=== PATIENT | female | born 1940 | race Caucasian/White ===

== ENCOUNTER 2017-05-14 20:10 | Emergency (ER) | payer OTHER ==
--- NOTE | 2017-05-14 20:16 | PDOC ---
History of Present Illness - General History Source: Patient Exam Limitations: No Limitations - History of Present Illness Initial Comments: 05/14/17 20:25 The patient is a 76 year old female, with no significant past medical history, who presents to the emergency department with, s/p mechanical fall. As per patients family member, she was walking up the stairs and missed a step. She put her hands out upon her fall. She denies recent fevers, chills, headache or dizziness. She denies recent nausea, vomit, diarrhea or constipation. She denies recent dysuria, frequency, urgency or hematuria. She denies recent chest pain or shortness of breath. PAST MEDICAL HISTORY: no significant history PAST SURGICAL HISTORY: no significant history FAMILY HISTORY: no pertinent history SOCIAL HISTORY: Pt lives with family. MEDICATIONS: reviewed ALLERGIES: As per nursing notes General: No fevers or chills, no weakness, no weight loss HEENT: No change in vision. No sore throat,. No ear pain CardioVascular: No chest pain or shortness of breath Respiratory:No cough, or wheezing. Gastrointestinal: no nausea, vomiting, diarrhea or constipation, No rectal bleeding Genitourinary: No dysuria, hematuria, or frequency Musculoskeletal: +Wrist pain and deformity. No joint or muscle pain or swelling Neurologic: No headache, vertigo, dizziness or loss of consciousness Psychiatric: nor depression Skin: No rashes or easy bruising Endocrine: no increased thirst or abnormal weight change Allergic: no skin or latex allergy All other systems reviewed and normal GENERAL: The patient is awake, alert, and fully oriented, in no acute distress. HEAD: Normal with no signs of trauma. EYES: Pupils equal, round and reactive to light, extraocular movements intact, sclera anicteric, conjunctiva clear. EXTREMITIES: +Right wrist deformity with swelling and ecchymosis pulses intact decreased rom due to pain and deformity capillary refill normal. Able to move all 5 fingers and sensation distal intact, no edema. NEUROLOGICAL: Normal speech, normal gait. PSYCH: Normal mood, normal affect. SKIN: Warm, Dry, normal turgor, no rashes or lesions noted. <Shahriar Mcclure - Last Filed: 05/14/17 20:25> - General History Source: Patient Exam Limitations: No Limitations - History of Present Illness Initial Comments: 05/14/17 21:50 A portion of this note was documented by scribe services under my direction. I have reviewed the details of the note, within reason, and agree with the documentation. The case summary and management plan written by me. X-ray displaced distal radius fracture Assessment and plan: This is a 76-year-old female who fell while going up stairs patient fell forward landing on her outstretched right wrist/hand. Patient comes in with an obvious deformity of the wrist. Dr. Manning orthopedist was called and reviewed the x-rays and will come in and reduce and cast the patient tonight. 05/14/17 23:07 Dr. Manning came in and reduced the fracture and put a splint on it at this time. Patient is visiting this country and returns to [facility] and May 28. Patient will follow-up with a doctor when she gets back home to [facility] however I will give her Dr. Manning's phone number in case she needs to have someone to follow up before she returns home. <Arnaldo Mendoza I - Last Filed: 05/14/17 23:09> - General Chief Complaint: Injury Stated Complaint: RT HAND, RT WRIST INJURY Time Seen by Provider: 05/14/17 20:16 Past History <Shahriar Mcclure - Last Filed: 05/14/17 20:25> <Arnaldo Mendoza I - Last Filed: 05/14/17 23:09> - Past Medical History Allergies/Adverse Reactions: Allergies Allergy/AdvReac Type Severity Reaction Status Date / Time No Known Allergies Allergy Verified 05/14/17 20:14 Home Medications: Ambulatory Orders NK [No Known Home Medication] 05/14/17 *Physical Exam - Vital Signs Last Vital Signs Temp Pulse Resp BP Pulse Ox 98.8 F 78 18 149/87 100 05/14/17 20:10 05/14/17 20:10 05/14/17 20:10 05/14/17 20:10 05/14/17 20:10 <Shahriar Mcclure - Last Filed: 05/14/17 20:25> *DC/Admit/Observation/Transfer - Attestations Scribe Attestion: 05/14/17 20:25 Documentation prepared by Shahriar Mcclure, acting as medical records secretary for Arnaldo Mendoza MD. <Shahriar Mcclure - Last Filed: 05/14/17 20:25> - Discharge Dispostion Admit: No <Arnaldo Mendoza I - Last Filed: 05/14/17 23:09> Diagnosis at time of Disposition: Wrist fracture, right Qualifiers: Encounter type: initial encounter Fracture type: closed Qualified Code(s): S62.101A - Fracture of unspecified carpal bone, right wrist, initial encounter for closed fracture - Discharge Dispostion Disposition: HOME Condition at time of disposition: Stable - Patient Instructions Printed Discharge Instructions: How to Use a Sling, DI for Wrist Fracture Additional Instructions: Tylenol or Motrin as needed for pain. Wear the splint and use a sling during the day U can take the sling off at night. If you need to follow-up with Dr. Manning's phone number is [phone] Otherwise follow-up with your doctor back in your home country when you get back home in May Return to the emergency department immediately with ANY new, persistent or worsening symptoms. Continue any medications as previously prescribed by your physician. You should follow up with your primary doctor as soon as possible regarding today's emergency department visit. . Please make sure your doctor reviews the results of your emergency evaluation. Thank you for coming to the Emergency Department today for your care. It was a pleasure to see you today. Please note that your evaluation is INCOMPLETE until you follow-up with your doctor.
[2017-05-14 20:36] VITALS: TEMP 98.8; BMI 28.3
[2017-05-14] MEDS ORDERED: LIDOCAINE HCL 2% (20ML MULTI-DOSE VIAL) NR ONE (22:28)
[2017-05-14 23:25] VITALS: BP 148/87; PULSE 82
--- NOTE | 2017-05-16 21:55 | CONS ---
ORTHOPEDIC CONSULTATION DATE OF CONSULTATION: 05/14/2017 CHIEF COMPLAINT: Right wrist injury. HISTORY OF PRESENT ILLNESS: This is a pleasant woman who tripped going up the stairs. She landed on her outstretched wrist. She had pain afterwards. She had deformity. She came to the emergency department where she was evaluated and diagnosed with a wrist fracture. Orthopedic consultation was called. The patient is here with her son. She does speak some [place] but he is helping to clarify when she has any questions about the content of her conversation. The patient notes only pain in the wrist. She denies any elbow or shoulder. She denies any pain elsewhere. She denies any radiating pain. She does have a little bit of pain going over the palm of the hand but this is not particularly bothersome. No previous injuries here. PAST MEDICAL HISTORY/PAST SURGICAL HISTORY/MEDICATIONS: Noncontributory . REVIEW OF SYSTEMS: Negative for any systemic, GI, , endocrine, integumentary symptoms. PHYSICAL EXAM: General: This is a well-appearing female in no acute distress. She is alert and oriented x3. She is overweight. She has regular respirations. Her heart rate is regular. She has a normal affect. Right Upper Extremity: Examination demonstrates some abrasions without any full thickness skin lesions over the wrist. There is a dinner fork deformity. The elbow is nontender. The shoulder is nontender. Sensation is grossly intact to light touch. Okay sign, finger cross and thumbs up are intact. Radial pulse 2+. RADIOGRAPHS: Reviewed, demonstrating a significantly displaced, comminuted, angulated distal radius fracture. ASSESSMENT: Right distal radius fracture. PLAN: I reviewed today's findings with the patient and her son. I discussed that she has significantly displaced distal radius fracture. Discussed both nonoperative and operative treatment options. Given the displacement present, I am recommending a closed reduction at this time and then she can decide on definitive management at a later date. I reviewed the risks of closed reduction, including increasing swelling, rare risk of compartment syndrome, rare risk of neurovascular injuries, more likely possible loss of reduction and potential for malunion. We discussed the possibility of cast sores. We discussed that this will be done using a hematoma block. I reviewed that this has a small risk of infection. I addressed all the patient's questions and concerns. She voiced understanding and wanted to proceed. PROCEDURE: The right upper extremity was prepped in the usual sterile fashion. Under sterile technique, a 22-gauge needle was inserted into the fracture itself. A small amount of hematoma was withdrawn. Lidocaine 2%, 10 mL were injected. The wrist was then hung in traction to allow for muscle relaxation. The wrist was then manually reduced. The deformity was significantly improved. A sugar-tong type splint was placed after placing a layer of Webril to provide padding. The sugar-tong splint was placed with a 3-point mold. It was over-wrapped with an Ronald wrap. Closed reduction radiographs were obtained demonstrating satisfactory reduction with only mild residual translation and slight dorsal angulation. I discussed the wrist was sitting in a reasonable alignment right now. We discussed it is not perfect. We discussed that even with surgical management, an anatomic reduction may not be possible given the comminution present. We discussed that in general, these fractures tend to do well even with a small amount of nonunion. I reviewed that it is possible that the reduction could still be lost, utilizing closed means, and therefore, followup radiographs are necessary. Typically this is done within 1 week of the closed reduction. However, the patient will be traveling and may choose to follow up in her own country. I did provide my office number and advised her she can contact us 24 hours a day. I reviewed warning signs of too tight cast or compartment syndrome including severe pain, loss of sensation, loss of motion, and these should be addressed immediately by either calling 911 or going to the emergency room. The patient and her son voiced understanding. She will follow up with me should she choose to stay in the country. BAKARI HICKEY M.D. [id number]
== END 2017-05-14 23:29 | disposition home or self-care (01) ==
LOC: FER 20:10
PROC: 2W3CX1Z Immobilization of Right Lower Arm using Splint (ICD-10-PCS; principal; 2017-05-14)
DX: S62.101A Fracture of unspecified carpal bone, right wrist, initial encounter for closed fracture (principal); W10.9XXA Fall (on) (from) unspecified stairs and steps, initial encounter; Y93.89 Activity, other specified; Y92.9 Unspecified place or not applicable
CPT/HCPCS: 73110-TC-RT; 99283-25